=== PATIENT | female | born 1950 | race Caucasian/White ===

== ENCOUNTER 2023-06-26 13:36 | Outpatient (RCR) | payer MEDICARE, SELFPAY ==
--- NOTE | 2023-06-26 14:58 | PTOPEVAL1 ---
Assessment and note entered by Westley Armstrong Evaluation Information Assessment Status Evaluation Diagnosis left shoulder pain Onset 06/20/23 Subjective Information Pt. reports that her left shoulder pain has come and gone for the past year. She notices pain most with attempting to reach behind her back or reaching overhead. She reports she has difficulty with getting objects out of the kitchen cabinets. She states that she cannot hold very much weight due to pain. She states that pain will disrupt her sleep, espeically if she lays on the left shoulder. She states that she is right hand dominant. She reports that her goal is to improve her left shoulder movement and reduce her pain. Reported Pain Level Pain Score 4: Self Report Assessment PT Clinical Summary Pt. is a 73 year old female who enters the clinic with left shoulder pain due to rotator cuff syndrome. She presents with left proximal u.e. weakness, impaired postural awarness, impaired left shoulder ROM and pain. Continued PT is indicated in order to improve these areas to allow for improved comfort with all IADL's. Plan of Care Interventions Electrical Stimulation,Hot Pack/Cold Pack,Manual Therapy,Neuro Re-education,Patient/Caregiver Educati,Therapeutic Activities,Therapeutic Exercise PT Services Indicated Yes Treatment Frequency and 2x/week x 10 visits Duration These treatments will address the objective and functional deficits as defined above. The patient will be advanced safely and appropriately in order for the patient to progress towards his/her prior level of function. Additional exercises will be introduced and as well as a comprehensive home exercise program upon discharge, if needed, ?to ensure carryover of functional gains achieved in the clinic. This treatment plan has been reviewed and agreement upon by the patient.
--- NOTE | 2023-06-26 14:58 | OPREHPOC ---
Outpatient Therapy Plan of Care This is a Multidisciplinary Plan of Care that may contain components documented by all disciplines (PT, OT, and ST.) PT Problem 1 PT Problem #1 Knowledge Deficit PT Goal 1 Goal Pt. will be independent with a HEP addressing mobility amish at the left shoulder. Target Visit 2 PT Problem 2 PT Problem #2 Pain PT Goal 1 Goal Pt. will report pain levels at 2/10 at worst with all overhead activities. Target Visit 10 PT Problem 3 PT Problem #3 Impaired Range of Motion PT Goal 1 Goal -Pt. will reach to 150 degrees left shoulder flexion active ROM in sitting -Pt. will demonstrate symmetry with combined shoulder IR and extension on both right and left. Target Visit 10 PT Problem 4 PT Problem #4 Impaired Strength PT Goal 1 Goal Pt. will demonstrate 4+/5 proximal left u.e. strength. Target Visit 10
--- NOTE | 2023-08-03 14:05 | OPREHPOC ---
Outpatient Therapy Plan of Care This is a Multidisciplinary Plan of Care that may contain components documented by all disciplines (PT, OT, and ST.) PT Problem 1 PT Problem #1 Knowledge Deficit PT Goal 1 Goal Pt. will be independent with a HEP addressing mobility islam at the left shoulder. Target Visit 2 Progress Met PT Problem 2 PT Problem #2 Pain PT Goal 1 Goal Pt. will report pain levels at 2/10 at worst with all overhead activities. Target Visit 10 Progress Met PT Problem 3 PT Problem #3 Impaired Range of Motion PT Goal 1 Goal -Pt. will reach to 150 degrees left shoulder flexion active ROM in sitting -adequate progress -Pt. will demonstrate symmetry with combined shoulder IR and extension on both right and left. -met Target Visit 10 Progress Partially Met PT Problem 4 PT Problem #4 Impaired Strength PT Goal 1 Goal Pt. will demonstrate 4+/5 proximal left u.e. strength. Target Visit 10 Progress Met
--- NOTE | 2023-08-03 14:05 | PTOPDC ---
Assessment and note entered by Opal Farrar, PT Evaluation Information Assessment Status Discharge Diagnosis Left shoulder pain Onset 06/20/23 Subjective Information Abby Day reports her left shoulder is doing much better. She is noting no pain with her daily activities and is able to put dishes away in overhead cabinets, bathe/groom the back of her head, reach behind her back to don/doff a bra, and carry groceries and laundry baskets without pain. The only time she notes pain in the left shoulder is when she accidentally rolls onto her left side while sleeping. Reported Pain Level Pain Score 0: Self Report Pain Score 2: Self Report Assessment PT Clinical Summary Abby aDy has completed 10 skilled PT visits for left shoulder pain. She is reporting no pain with her daily activities and is able to put dishes away in overhead cabinets, bathe/groom the back of her head, reach behind her back to don/ doff a bra, and carry groceries and laundry baskets without pain. She occasionally has left shoulder pain when she lays on the left side. She objectively demonstrates improved left shoulder AROM to functional ranges, improved left shoulder strength, and less positive special tests for impingement and biceps tendonitis. She does still show a positive left Speed's test indicating some biceps tendon irritation is still present. She is independent in a home exercise program and has met all goals for PT so she will be discharged. Plan of Care PT Services Indicated No
== END 2023-08-03 18:14 | disposition home or self-care (01) ==
LOC: CHSPT 13:36
PROVIDERS: Visit Provider Family Medicine
DX: M25.512 Pain in left shoulder (principal)
CPT/HCPCS: 97014; 97110; 97150; 97161; G0283

== ENCOUNTER 2024-06-28 12:32 | Emergency (ER) | payer MEDICARE, SELFPAY ==
--- NOTE | ~2024-06-28 | XR_ITS ---
EXAMINATION: XR chest 2V DATE: 06/28/2024 12:53 INDICATION: Cough and chest congestion. Pneumonia. TECHNIQUE: Frontal and lateral views of the chest were obtained. COMPARISON: None. FINDINGS: There is no pneumonia, pleural effusion, or pneumothorax. The heart size is normal. IMPRESSION: 1. No acute cardiopulmonary disease. Reviewed, dictated and finalized at location A. [facility]
--- NOTE | 2024-06-28 12:33 | ED_ITS ---
HPI - URI/Sore Throat General Chief Complaint: Upper Respiratory Infection Stated Complaint: Congestion Time Seen by Provider: 06/28/24 12:33 Source: patient Mode of arrival: ambulatory Limitations: no limitations History of Present Illness HPI Narrative: Abby is a 74-year-old female patient presenting to the clinic today with complaints of cough, sore throat, runny nose, chest congestion, and body aches with chills. She reports symptoms have been going on for approximately for 5 days. No known fever. Denies any chest pain or shortness of breath but has had pneumonia exposure. MD elicited complaint: sore throat and nasal congestion Related Data Home Medications Medication Instructions Recorded Confirmed [id number] tablet 1 tablet PO DAILY 06/28/24 06/28/24 metoprolol tartrate 25 mg tablet 25 mg PO DAILY 06/28/24 06/28/24 potassium chloride 10 mEq 10 meq PO DAILY 06/28/24 06/28/24 capsule,extended release Allergies Allergy/AdvReac Type Severity Reaction Status Date / Time Penicillins Allergy Rash Verified 06/28/24 12:43 Review of Systems Review of Systems: Pertinent positives per HPI. Patient denies any fever, rash, headache, visual changes, dizziness, shortness of breath, chest pain, palpitations, nausea, vomiting, diarrhea, constipation, abdominal pain, or any urinary issues. PMFSH Comments At the time of my signature, I reviewed and agree with the nursing past medical, surgical, social, and family history. There is no relevant family history pertinent to the patient complaint. Exam Narrative: General: Well-developed, well nourished, in no apparent distress Head: Normocephalic, atraumatic Eyes: Pupils equally round and reactive to light bilaterally, EOM intact, sclera and conjunctive clear, no discharge, lids normal Ears: TMs intact and congested, ear canals clear, no drainage, grossly hearing normal. Nose: Nares patent, clear nasal discharge, no inflammation, no sinus tenderness. Mouth: Oral pharynx red without lesions or masses, good dentition, MMM. Postn jeny drip Neck: Supple, trachea midline, no enlargement of anterior or posterior cervical nodes, no thyroid masses or goiter palpable. Cardio: Regular rate and rhythm, s1 and s2 normal, no murmur appreciated. Resp: Diminished in the bases otherwise clear, no rhonchi, rales, wheezing or rubs Course Course Emergency Course: Portions of this record may have been created with voice recognition software. Level of Care: Express Care Visit Vital Signs Vital signs: Vital Signs Temperature 36.5 C 06/28/24 12:48 Pulse Rate 63 06/28/24 12:48 Respiratory Rate 16 06/28/24 12:48 Blood Pressure 146/85 H 06/28/24 12:48 Pulse Oximetry 98 06/28/24 12:48 Temperature 36.5 C 06/28/24 12:48 Pulse Rate 63 06/28/24 12:48 Respiratory Rate 16 06/28/24 12:48 Blood Pressure 146/85 H 06/28/24 12:48 Pulse Oximetry 98 06/28/24 12:48 Vital signs reviewed MDM - URI/Sore Throat MDM Narrative Medical decision making narrative: At the time of visit patient is resting comfortably on the exam table. Patient appears to be nontoxic. Labs: COVID, influenza, and strep test were all performed. All test were negative. We will send strep for culture Diagnostics: Chest x-ray was performed and is negative for any acute cardiopulmonary process. Plan: I suspect patient has URI with cough and congestion. Prescription for albuterol inhaler and prednisone was sent to the pharmacy. Supportive measures were discussed with the patient and they voiced understanding discharge instructions and agrees to treatment plan. Return precautions reviewed Differential Diagnosis Differential diagnosis: Likely upper respiratory infection, otitis media, sinusitis, viral infection, bronchitis, influenza, pharyngitis and other (COVID) Lab Data Labs: Lab Results 06/28/24 06/28/24 Range/Units 12:56 13:06 POC Influenza A Ag Negative (Negative) POC Influenza B Ag Negative (Negative) POC SARS CoV-2 Ag Negative (Negative) POC Grp A Strep Screen Negative (Negative) Imaging Data Radiologist's impression: ITS Impressions Chest X-Ray 06/28/24 13:06 IMPRESSION: 1. No acute cardiopulmonary disease. Discharge Plan Discharge Clinical Impression: Upper respiratory infection with cough and congestion Pharyngitis Qualifiers: Pharyngitis/tonsillitis etiology: unspecified etiology Qualified Code(s): J02.9 - Acute pharyngitis, unspecified Patient Disposition: Home, Self-Care Condition: Stable Instructions: Antibiotic Form, Pharyngitis (ED), Upper Respiratory Infection (ED) Additional Instructions: COVID, influenza, and strep test were all negative in the clinic today. We will send strep for culture if this comes back positive we will contact you in place you on antibiotics at that time Chest x-rays negative for any acute cardiopulmonary process Take medications as prescribed-prednisone and albuterol inhaler Increase fluids and stay well hydrated Tylenol/motrin for pain/fever Flonase and OTC antihistamines as directed Vicks vapor rub to open sinuses Sinus rinses for congestion Cepacol spray, cough drops, throat lozenges, warm tea with honey/lemon, gargle salt water to soothe throat BRAT diet for diarrhea Clear liquids x 24 hours then advance as tolerated for nausea/vomiting Go to the ED if you develop a worsening in your condition- high fever not controlled by Tylenol or Motrin, dehydration, weakness, lethargy, shortness of breath, or chest pain. Follow up with your PCP in 3-5 days if symptoms persist. Prescriptions: New albuterol sulfate 90 mcg/actuation HFA aerosol inhaler 2 puff inhalation Q4-6H PRN (Reason: shortness of breath or wheezing) 30 Days Qty: 8.5 0RF prednisone 20 mg tablet 40 mg PO DAILY 5 Days Qty: 10 0RF No Action potassium chloride 10 mEq capsule, extended release 10 meq PO DAILY metoprolol tartrate 25 mg tablet 25 mg PO DAILY Coricidin Tablet 1 tablet PO DAILY Follow-up/Referrals: UNKNOWN,DOCTOR [Primary Care Provider] - Time of Disposition: 13:11 Quality NIHSS Nursing Documentation ED NIHSS nursing documentation: reviewed/agree
[2024-06-28 12:48] VITALS: BP 146/85; PULSE 63; RESP 16; TEMP 36.5; O2SAT 98
[2024-06-28 12:57] LABS: EDSTREPNEGPOS1 Negative (Negative)
[2024-06-28 13:08] LABS: EDCOVIDSCREEN Negative (Negative); EDINFLUASCREEN Negative (Negative); EDINFLUBSCREEN Negative (Negative)
== END 2024-06-28 13:17 | disposition home or self-care (01) ==
PROVIDERS: Emergency Provider Nurse Practitioner Family
DX: J06.9 Acute upper respiratory infection, unspecified (principal); J02.9 Acute pharyngitis, unspecified; Z20.822 Contact with and (suspected) exposure to COVID-19; I10 Essential (primary) hypertension
CPT/HCPCS: 71046; 87081; 87426; 87804; 87880; 99213; G0463

== ENCOUNTER 2024-06-30 09:05 | Emergency (ER) | payer MEDICARE, SELFPAY ==
[2024-06-30 09:17] VITALS: PULSE 77; RESP 16; TEMP 36.3; O2SAT 97
[2024-06-30 09:23] VITALS: PULSE 77; RESP 16; TEMP 36.3; O2SAT 97
--- NOTE | 2024-06-30 09:35 | ED.EAR ---
HPI - Ear Problem General Chief complaint: Ear Stated complaint: Eye/Ear Pain Time Seen by Provider: 06/30/24 09:36 Source: patient Mode of arrival: ambulatory Limitations: no limitations History of Present Illness HPI Narrative: 76-year-old female history of hypertension presented for complaint of bilateral eye redness, itching and drainage for 2 days. Also reports bilateral ear pain and pressure with decreased hearing over the past 4 days. Patient states she was seen in the clinic 2 days ago and prescribed a steroid and an inhaler for symptoms of chest congestion and viral URI, and states the ear pain has progressed. Denies shortness of breath, wheezing, nausea, vomiting, diarrhea, fevers or chills MD Complaint: ear pain Related Data Home Medications Medication Instructions Recorded Confirmed [id number]-[id number] tablet 1 tablet PO DAILY 06/28/24 06/30/24 metoprolol tartrate 25 mg tablet 25 mg PO DAILY 06/28/24 06/30/24 potassium chloride 10 mEq 10 meq PO DAILY 06/28/24 06/30/24 capsule,extended release chlorthalidone 25 mg tablet 25 mg PO DIRECTED 06/30/24 06/30/24 Allergies Allergy/AdvReac Type Severity Reaction Status Date / Time Penicillins Allergy Rash Verified 06/30/24 09:17 Review of Systems Review of Systems: CONSTITUTIONAL: Denies malaise, chills, or fever. EYES: Denies visual changes, reports redness, itching, discharge. ENT: Denies sinus pain, and sore throat. Reports ear pain rhinorrhea, congestion CARDIOVASCULAR: Denies chest pain, palpitations, or edema. RESPIRATORY: Denies cough or dyspnea. GASTROINTESTINAL: Denies abdominal pain, nausea, vomiting, diarrhea SKIN: Denies rash or itching. MUSCULOSKELETAL: Denies myalgia. NEUROLOGIC: Denies headache. All systems reviewed & are unremarkable except as noted in HPI and below PMFSH Past Medical History Medical History Hypertension Comments At time of signature, agree with nursing past medical, surgical, social and family history. There is no relevant family history pertinent to the presenting complaint Exam Narrative: GENERAL: Well-appearing, and in no acute distress. HEAD: Normocephalic EYES: Lateral conjunctival injection, small amount of purulent drainage, mild lower lid swelling. PERRLA, EOMI. No foreign body with lid eversion ENT: Nares clear. Mucous membranes moist. Bilateral TM erythematous, bulging and intact with purulent effusion; canal not erythematous, no drainage; no tragal tenderness. Oropharynx not erythematous without lesions. NECK: Supple. No lymphadenopathy CHEST: Clear to auscultation, breath sounds equal. No wheezing, rhonchi, rales, or stridor. No respiratory distress, speaks in full sentences. HEART: Regular rate and rhythm. No murmur heard. SKIN: Warm, dry, no rash. NEURO: Alert and oriented x3. PSYCH: Normal mood and affect Course Course Emergency Course: Patient is aware of diagnosis, understands and agrees to treatment plan. Anticipatory guidance given. Patient agrees to follow-up as directed and is aware of reasons to seek care at the emergency department. Portions of this record may have been created with voice recognition software Level of Care: Express Care Visit Vital Signs Vital signs: Vital Signs Temperature 97.3 F L 06/30/24 09:17 Pulse Rate 77 06/30/24 09:17 Respiratory Rate 16 06/30/24 09:17 Pulse Oximetry 97 06/30/24 09:17 Temperature 97.3 F L 06/30/24 09:23 Pulse Rate 77 06/30/24 09:23 Respiratory Rate 16 06/30/24 09:23 Blood Pressure 174/65 H 06/30/24 09:44 Pulse Oximetry 97 06/30/24 09:23 Reviewed Medical Decision Making MDM Narrative Medical decision making narrative: Discussed physical exam findings consistent with bilateral conjunctivitis and bilateral AOM. Reviewed prescriptions. Advised supportive measures and signs/symptoms to go to the ER. Patient is appropriate for outpatient treatment and follow-up. Differential Diagnosis Differential Diagnosis: Coronavirus, strep pharyngitis, allergic rhinitis, upper respiratory tract infection, sinusitis, rhinosinusitis, nasopharyngitis, viral pharyngitis, otitis media, otitis externa, eustachian tube dysfunction, foreign body, cerumen impaction. Vital Signs Vital Signs: Vital Signs Temperature 97.3 F L 06/30/24 09:17 Pulse Rate 77 06/30/24 09:17 Respiratory Rate 16 06/30/24 09:17 Pulse Oximetry 97 06/30/24 09:17 Temperature 97.3 F L 12/08/24 09:23 Pulse Rate 77 06/30/24 09:23 Respiratory Rate 16 06/30/24 09:23 Blood Pressure 174/65 H 06/30/24 09:44 Pulse Oximetry 97 06/30/24 09:23 Discharge Plan Discharge Clinical Impression: Otitis media, Conjunctivitis Patient Disposition: Home, Self-Care Condition: Stable Instructions: Antibiotic Form, Ear Infection (ED), Conjunctivitis (ED) Additional Instructions: Eyes: Avoid touching or rubbing your eye. Use over the counter lubricating eye drops as needed for irritation Use a warm or cool washcloth on your eye for comfort Use eyedrops as directed - you are contagious for 24 hours after starting the antibiotic Practice good handwashing and hygiene to prevent spread of infection Use new makeup, lashes etc. You may take Tylenol or ibuprofen for pain Follow-up with PCP or dental technology advisor if condition is not improving in 2-3days. Go to the emergency room if you have severe pain or pressure behind your eye, difficulty seeing, or other severe symptoms Ears: Take antibiotics as directed. Recommend antihistamine such as Benadryl, Zyrtec or Chaya for sinus congestion Flonase nasal spray, 1 spray in each nostril once daily until symptoms improve Symptomatic treatment includes: rest, fluids, and increase humidity of the air at home. Tylenol 1000mg every 8 hours as needed to reduce fever, pain Please schedule a follow-up visit with your personal physician for further evaluation and treatment within 3-5days. If your symptoms persist, change or worsen significantly, go to the emergency department for further evaluation. Prescriptions: New ofloxacin 0.3 % drops See Rx Instructions .ROUTE .COMPLEX Qty: 10 0RF Rx Instructions: put 2 drops into affected eye(s) every 2 hours x 2 days, then 2 drops 4 times/day days 3-7 cefdinir 300 mg capsule 300 mg PO Q12H Qty: 14 0RF No Action chlorthalidone 25 mg tablet 25 mg PO DIRECTED potassium chloride 10 mEq capsule, extended release 10 meq PO DAILY metoprolol tartrate 25 mg tablet 25 mg PO DAILY Coricidin Tablet 1 tablet PO DAILY albuterol sulfate 90 mcg/actuation HFA aerosol inhaler 2 puff inhalation Q4-6H PRN (Reason: shortness of breath or wheezing) 30 Days Qty: 8.5 0RF Follow-up/Referrals: Edgar,Ember Hunt MD [Primary Care Provider] -
[2024-06-30 09:44] VITALS: BP 174/65
== END 2024-06-30 09:46 | disposition home or self-care (01) ==
PROVIDERS: Emergency Provider Nurse Practitioner Family; PCP Family Medicine
DX: H66.93 Otitis media, unspecified, bilateral (principal); H10.9 Unspecified conjunctivitis; I10 Essential (primary) hypertension
CPT/HCPCS: 99213; G0463

== ENCOUNTER 2024-07-11 11:06 | Emergency (ER) | payer MEDICARE, SELFPAY ==
[2024-07-11 11:40] VITALS: BP 126/55; PULSE 60; RESP 16; TEMP 36.2; O2SAT 99
--- NOTE | 2024-07-11 11:59 | ED.EAR ---
HPI - Ear Problem General Chief complaint: Ear Stated complaint: EARS CLOGGED Time Seen by Provider: 07/11/24 11:50 Source: patient Mode of arrival: ambulatory Limitations: no limitations History of Present Illness HPI Narrative: Abby is a 74-year-old female patient presenting to the clinic today with complaints of bilateral ears clogged. She just got over having a URI and was treated with antibiotics and steroids. States that her ears are still feeling clogged up and she cannot hear very well. Denies any other URI symptoms at this time. Related Data Home Medications ?Medication ?Instructions ?Recorded ?Confirmed ?Last Taken ?Type [id number]-GPC-wahxsgsubguch tablet 1 tablet PO DAILY 06/28/24 07/11/24 Unknown History metoprolol tartrate 25 mg tablet 25 mg PO DAILY 06/28/24 07/11/24 Unknown History potassium chloride 10 mEq 10 meq PO DAILY 06/28/24 07/11/24 Unknown History capsule,extended release chlorthalidone 25 mg tablet 25 mg PO DIRECTED 06/30/24 07/11/24 Unknown History Allergies Allergy/AdvReac Type Severity Reaction Status Date / Time Penicillins Allergy Rash Verified 07/11/24 11:38 Review of Systems Review of Systems: Pertinent positives per HPI. Patient denies any fever, chills, rash, headache, visual changes, dizziness, cough, runny nose, sore throat, shortness of breath, chest pain, palpitations, nausea, vomiting, diarrhea, constipation, abdominal pain, or any urinary issues. PMFSH Past Medical History Medical History Hypertension Comments At the time of my signature, I reviewed and agree with the nursing past medical, surgical, social, and family history. There is no relevant family history pertinent to the patient complaint. Exam Narrative: General: Well-developed, well nourished, in no apparent distress Head: Normocephalic, atraumatic Eyes: Pupils equally round and reactive to light bilaterally, EOM intact, sclera and conjunctive clear, no discharge, lids normal Ears: TMs intact and congested with fluid noted behind the TMs, ear canals clear, no drainage, grossly hearing normal. Nose: Nares patent, clear nasal discharge, no inflammation, no sinus tenderness. Mouth: Oropharynx without lesions or masses, good dentition, MMM. Neck: Supple, trachea midline, no enlargement of anterior or posterior cervical nodes, no thyroid masses or goiter palpable. Cardio: Regular rate and rhythm, s1 and s2 normal, no murmur appreciated. Resp: Clear to auscultation bilaterally anteriorly and posteriorly, no rhonchi, rales, wheezing or rubs Course Course Emergency Course: Portions of this record may have been created with voice recognition software. Level of Care: Express Care Visit Vital Signs Vital signs: Vital Signs Temperature 36.2 C L 07/11/24 11:40 Pulse Rate 60 07/11/24 11:40 Respiratory Rate 16 07/11/24 11:40 Blood Pressure 126/55 L 07/11/24 11:40 Pulse Oximetry 99 07/11/24 11:40 Temperature 36.2 C L 07/11/24 11:40 Pulse Rate 60 07/11/24 11:40 Respiratory Rate 16 07/11/24 11:40 Blood Pressure 126/55 L 07/11/24 11:40 Pulse Oximetry 99 07/11/24 11:40 Vital signs reviewed Medical Decision Making MDM Narrative Medical decision making narrative: At the time of visit patient is resting comfortably on the exam table. Patient appears to be nontoxic. Plan: I suspect patient has serous otitis. Prescription for prednisone was given to the patient for follow-up with ENT if symptoms do not improve. Supportive measures were discussed with the patient and they voiced understanding discharge instructions and agrees to treatment plan. Return precautions reviewed Differential Diagnosis Differential Diagnosis: Serous otitis, otitis media, eustachian tube dysfunction, otitis externa, URI Vital Signs Vital Signs: Vital Signs Temperature 36.2 C L 07/11/24 11:40 Pulse Rate 60 07/11/24 11:40 Respiratory Rate 16 07/11/24 11:40 Blood Pressure 126/55 L 07/11/24 11:40 Pulse Oximetry 99 07/11/24 11:40 Temperature 36.2 C L 07/11/24 11:40 Pulse Rate 60 07/11/24 11:40 Respiratory Rate 16 07/11/24 11:40 Blood Pressure 126/55 L 07/11/24 11:40 Pulse Oximetry 99 07/11/24 11:40 Discharge Plan Discharge Clinical Impression: Acute serous otitis media Qualifiers: Laterality: bilateral Recurrence: non-recurrent Qualified Code(s): H65.03 - Acute serous otitis media, bilateral Patient Disposition: Home, Self-Care Condition: Stable Instructions: Antibiotic Form, Fluid In The Ear (Serous Otitis Media) (ED) Additional Instructions: Take any prescribed medications only as directed-prednisone Tylenol/motrin as needed for pain May use heating pad to alleviate pain If you get recurrent ear infections it may be warranted to follow up with ENT. Follow up with your PCP in 3-5 days if symptoms persist. Patient Language: Croatian Prescriptions: New prednisone 10 mg tablet 10 mg PO DAILY Qty: 30 0RF Rx Instructions: 60mg po daily on day 1, 40mg po daily on days 2-4, 30mg po daily on days 5-6, 20mg po daily on days 7-8, 10mg po daily on days 9-10 No Action chlorthalidone 25 mg tablet 25 mg PO DIRECTED potassium chloride 10 mEq capsule, extended release 10 meq PO DAILY metoprolol tartrate 25 mg tablet 25 mg PO DAILY Coricidin Tablet 1 tablet PO DAILY albuterol sulfate 90 mcg/actuation HFA aerosol inhaler 2 puff inhalation Q4-6H PRN (Reason: shortness of breath or wheezing) 30 Days Qty: 8.5 0RF Follow-up/Referrals: Amos Skinner MD [Physician] - Yomk,Ember Hunt MD [Primary Care Provider] - Time of Disposition: 12:00 Quality NIHSS Nursing Documentation ED NIHSS nursing documentation: reviewed/agree
== END 2024-07-11 12:11 | disposition home or self-care (01) ==
PROVIDERS: Emergency Provider Nurse Practitioner Family; PCP Family Medicine
DX: H65.03 Acute serous otitis media, bilateral (principal); I10 Essential (primary) hypertension
CPT/HCPCS: 99213; G0463

== ENCOUNTER 2024-12-05 11:49 | Outpatient (CLI) | payer MEDICARE, SELFPAY ==
--- OUTSIDE RECORDS SUMMARY | 2024-12-05 11:54 | XMS_ITS | Clinical Summary ---
Author Organization [facility] Address [address] [place] [phone] Care Team Providers Care Director Software Development Name Role Phone Ember Galvez MD Primary Care Provider + Allergies Active Allergy Reactions Criticality Noted Date Comments Penicillins Hives Medium 09/21/2023 Medications potassium chloride ER 10 mEq CR capsule TAKE 1 CAPSULE ORALLY TWICE A DAY DO NOT CRUSH OR CHEW. WITH A FULL GLASS OF WATER 4 Active zolpidem (AMBIEN) 5 mg tablet Take 1 tablet (5 mg total) by mouth nightly as needed Active chlorthalidone (HYGROTON) 25 mg tablet Take 1 tablet (25 mg total) by mouth daily 4 Active metoprolol tartrate (LOPRESSOR) 25 mg immediate release tablet Take 1 tablet (25 mg total) by mouth 2 (two) times a day Active clotrimazole 1 % cream APPLY TO THE AFFECTED AND SURROUNDING AREAS OF SKIN BY TOPICAL ROUTE 2 TIMES PER DAY IN THE MORNING AND EVENING prn Active cholecalciferol (VITAMIN D-3) 2000 unit tablet Active krill oil 500 mg capsule Take by mouth Activ e magnesium gluconate 200 mg tabletIndicatio ns:hypomagnesem ia 1 tablet (200 mg total) Active Active Problems No known active problems Social History Tobacco Use Types Packs/Day Years Used Date Smoking Tobacco: Former Cigarettes Smokeless Tobacco: Never Tobacco Cessation:Counseling Given: Not Answered Personal Safety Answer Date Recorded Getting School Help Needed Not on file 07/03 Comments Unknown Sex and Gender Information Value Date Recorded Sex Assigned at Not on file Legal Sex Female 3:06 PM [employer] Gender Identity Not on file Sexual Orientation Not on file Obstetrics History Last Filed Vital Signs Vital Sign Reading Time Taken Comments Blood Pressure 151/72 09/21/2023 11:12 AM [employer] Pulse 58 09/21/2023 11:12 AM [employer] Temperature 36.3 C (97.3 F) 09/21/2023 11:12 AM [employer] Respiratory Rate 18 09/21/2023 11:12 AM [employer] Oxygen Saturation 96% 09/21/2023 11:12 AM [employer] Inhaled Oxygen Concentration - - Weight 82.6 kg (182 lb) 09/21/2023 11:12 AM [employer] HEL[employer] Height 160.5 cm (5' 3.19 ) 09/21/2023 11:[address] Body Mass Index 32.05 09/21/2023 11:12 AM [employer] HEL[employer] Plan of Treatment Health Maintenance Due Date Last Done Comments Breast Cancer Screening-Mammogram 1950 Colon Cancer Screening-Colonoscopy 1950 Depression Screening 1950 Fall Risk Assessment 1950 Hepatitis C Screening 1950 Osteoporosis Screening-Bone Density Scan 1950 DTaP/Tdap/Td Vaccine (1 - Tdap) 1961 Hepatitis B Screening 1968 Pneumococcal vaccine 65+ (1 of 1 - PCV) 2000 Zoster Vaccine (1 of 2) 2000 Well Visit 65+ 2015 Influenza Vaccine (#1) 2024 04/27/2023 Insurance [facility] Care Teams Director Software Development Relationship Specialty Start Date End Date Ember Galvez MD [address] [place] [address] [place] [id number] PCP - General Family Medicine 07/03/23
--- OUTSIDE RECORDS SUMMARY | 2024-12-05 11:54 | XMS_ITS | Data Portability ---
Author Organization [place] [facility] [employer], Main Office Address [address] [place] [address] Assessment Encounter Date Assessment Date Assessment LastModified by Organization Details LastModified Time 04/27/2023 04/27/2023 ? rls, check labs [email or web address] Not available 04/27/2023 15:56:25 Plan of Treatment Reminders Order Date Submit Date Provider Last Modified By Organization Details Last Modified Time Details Appointments Any 15 2024 01:00P Ashley Ward NP Not available Not available Not available Lab HbA1c (hemoglob in A1c), blood 2024 025 [facility], [address] [place] [address], [address], 10/06/2024 08:11:58 magnesium , serum or plasma 2024 025 [facility], [address] [place] [address], [address], 10/06/2024 08:12:00 cobalamin and folate panel, serum 2024 025 [facility], [address] [place] [address], [place], [address], 10/06/2024 08:11:56 CK (creatine kinase), total, serum 2024 025 [facility], [address] [place] [address], [place], [address], 10/06/2024 08:11:57 lipid panel, serum 2024 025 [facility], [address] [place] [address] 2, [place], [address], 10/06/2024 08:11:55 hepatic function panel, serum 2024 025 [facility], [address] [place] [address], [facility] 2, [place], [address], 10/06/2024 08:11:54 CMP, serum or plasma 2024 025 [facility], [address] [place] [address], [facility] 2, [place], [address], 10/06/2024 08:11:53 vitamin D, 25-hydrox y, total, serum 2024 025 [facility], [address] [place] [address], [facility] 2, [place], [address], 10/06/2024 08:11:59 CBC w/ auto diff 2024 025 [facility], [address] [place] [address] 2, [place], [address], 10/06/2024 08:11:51 TSH + free T4, serum 2024 025 [facility], [address] [place] [address], [facility] 2, [place], [address], 10/06/2024 08:11:50 T3, free, serum or plasma 2024 025 [facility], [address] [place] [address], [place], [address], 10/06/2024 08:12:01 ferritin, serum or plasma 2022 023 [facility] Not available 06/28/2023 08:27:53 iron + total iron-bind ing capacity (TIBC), serum 2022 023 [facility] Not available 06/28/2023 08:27:52 CBC w/ auto diff 2022 023 [facility] Not available 06/28/2023 08:27:50 hepatic function panel, serum 2022 023 [facility] Not available 06/28/2023 08:27:51 glycohemo globin, total, blood 2022 023 [email or web address] 77 Not available 05/08/2023 08:02:59 BMP, serum or plasma 2022 023 [email or web address] 77 Not available 05/08/2023 08:02:59 magnesium , serum or plasma 2022 023 [email or web address] 77 Not available 05/08/2023 08:03:00 iron + total iron-bind ing capacity (TIBC), serum 2022 023 [email or web address] 77 Not available 05/08/2023 08:03:00 ferritin, serum or plasma 2022 023 [email or web address] 77 Not available 05/08/2023 08:03:00 lipid panel, serum 2022 023 [email or web address] 77 Not available 05/08/2023 08:03:00 hepatic function panel, serum 2022 023 77 Not available 05/08/2023 08:03:01 vitamin D, 25-hydrox y, total, serum 2022 023 [email or web address] 77 Not available 05/08/2023 08:03:00 CBC w/ auto diff 2022 023 [email or web address] 77 Not available 05/08/2023 08:03:00 TSH, serum or plasma 2022 023 [email or web address] 77 Not available 05/08/2023 08:03:00 vitamin B12, serum 2022 023 [email or web address] 77 Not available 05/08/2023 08:03:00 Referral physical therapist referral - *Please call pt to schedule* 2022 023 [facility], [address] [place], [address], 06/26/2023 17:39:26 otolaryng ologist referral 2022 023 [email or web address] Elier Muñoz MD, [address], [place], [address], 08/09/2023 18:21:46 Procedures None recorded. Surgeries None recorded. Imaging MAMMO, screening , digital, bilateral - Please call patient to schedule. 2024 025 [facility] ([facility]), [address] [facility], [place], [address], 11/06/2024 16:38:12 Medication Orders metoprolo l tartrate 25 mg tablet 2024 025 [facility]acy #3259, [address] [place], [address], 10/02/2024 10:44:05 potassium chloride ER 10 mEq capsule,e xtended release 2024 025 [facility]acy #3259, [address] [place], [address], 10/02/2024 10:45:22 clotrimaz ole 1 % topical cream 2023 024 [facility]armacy #3259, [address] [place], [address], 09/25/2023 15:35:42 nystatin 100,000 unit/gram topical powder 2022 023 [email or web address]/Ph[facility]acy #3259, [address] [place], [address], 09/25/2023 15:28:36 metoprolo l tartrate 25 mg tablet 2022 023 [email or web address] [facility]/Pharmacy #3259, [address] [place], [address], 06/21/2023 21:15:56 Patient TargetsNo targets recorded. Patient InstructionsNo instructions recorded. Reason for Referral Director Of Medical Review Referral fo r Vertigo Referring Physician: Ember Galvez [facility], Encounter Date: 06/20/2023 Physical Therapist Referral for Pain of left shoulder joint *Please call pt to schedule* Referring Physician: Ember Galvez [facility], Encounter Date: 06/20/2023 Results Created Date Observation Date Name Description Value Unit Range Abnormal Flag Note LastModifiedBy Organization Detail LastModifiedTime 05/15/2005/16/2023 CBC WITH DIFFE RENTI AL/PL ATELE T WBC 4.9 x10e3 /uL 3.4-10 .8 Not Available [facility] ([facility]) [address] [place], [address], 05/16/2023 08:23:58 05/15/2005/16/2023 CBC WITH DIFFE RENTI AL/PL ATELE T RBC 4.80 x10e6 /uL 3.77-5 .28 Not Available [facility] ([facility]) [address] [place], [address], 05/16/2023 08:23:58 05/15/2005/16/2023 CBC WITH DIFFE RENTI AL/PL ATELE T hemoglobin 14.2 g/dL 11.1-1 5.9 Not Available [facility] ([facility]) [address] [place], [address], 05/16/2023 08:23:58 05/15/2005/16/2023 CBC WITH DIFFE RENTI AL/PL ATELE T hematocrit 41.2 % 34.0-4 6.6 Not Available [facility] ([facility]) [address] [place], [address], 05/16/2023 08:23:58 05/15/2005/16/2023 CBC WITH DIFFE RENTI AL/PL ATELE T MCV 86 fL 79-97 Not Available [facility] ([facility]) [address] [facility], [place], [address], 05/16/2023 08:23:58 05/15/2005/16/2023 CBC WITH DIFFE RENTI AL/PL ATELE T MCH 29.6 pg 26.6-3 3.0 Not Available [facility] ([facility]) [address] [facility], [place], [address], 05/16/2023 08:23:58 05/15/2005/16/2023 CBC WITH DIFFE RENTI AL/PL ATELE T MCHC 34.5 g/dL 31.5-3 5.7 Not Available [facility] ([facility]) [address] [facility], [place], [address], 05/16/2023 08:23:58 05/15/2005/16/2023 CBC WITH DIFFE RENTI AL/PL ATELE T RDW 12.4 % 11.7-1 5.4 Not Available [facility] ([facility]) [address] [facility], [place], [address], 05/16/2023 08:23:58 05/15/2005/16/2023 CBC WITH DIFFE RENTI AL/PL ATELE T platelets 219 x10e3 /uL 150-45 0 Not Available [facility] ([facility]) [address] [facility], [place], [address], 05/16/2023 08:23:58 05/15/2005/16/2023 CBC WITH DIFFE RENTI AL/PL ATELE T neutrophils 68 % not estab. Not Available [facility] ([facility]) [address] [place], [address], 05/16/2023 08:23:58 05/15/2005/16/2023 CBC WITH DIFFE RENTI AL/PL ATELE T lymphs 21 % not estab. Not Available [facility] ([facility]) [address] [facility], [place], [address], 05/16/2023 08:23:58 05/15/2005/16/2023 CBC WITH DIFFE RENTI AL/PL ATELE T monocytes 7 % not estab. Not Available [facility] ([facility]) [address] [place], [address], 05/16/2023 08:23:58 05/15/2005/16/2023 CBC WITH DIFFE RENTI AL/PL ATELE T eos 3 % not estab. Not Available [facility] ([facility]) [address] [facility], [place], [address], 05/16/2023 08:23:58 05/15/2005/16/2023 CBC WITH DIFFE RENTI AL/PL ATELE T basos 1 % not estab. Not Available [facility] ([facility]) [address] [facility], [place], [address], 05/16/2023 08:23:58 05/15/2005/16/2023 CBC WITH DIFFE RENTI AL/PL ATELE T immature cells ENDOSCOPY RN Not Available [facility] ([facility]) [address] [place], [address], 05/16/2023 08:23:58 05/15/2005/16/2023 CBC WITH DIFFE RENTI AL/PL ATELE T neutrophils (absolute) 3.3 x10e3 /uL 1.4-7. 0 Not Available [facility] ([facility]) [address] [place], [address], 05/16/2023 08:23:58 05/15/2005/16/2023 CBC WITH DIFFE RENTI AL/PL ATELE T lymphs (absolute) 1.0 x10e3 /uL 0.7-3. 1 Not Available [facility] ([facility]) [address] [place], [address], 05/16/2023 08:23:58 05/15/2005/16/2023 CBC WITH DIFFE RENTI AL/PL ATELE T monocytes(ab solute) 0.3 x10e3 /uL 0.1-0. 9 Not Available [facility] ([facility]) [address] [facility], [place], [address], 05/16/2023 08:23:58 05/15/2005/16/2023 CBC WITH DIFFE RENTI AL/PL ATELE T eos (absolute) 0.2 x10e3 /uL 0.0-0. 4 Not Available [facility] ([facility]) [address] [facility], [place], [address], 05/16/2023 08:23:58 05/15/2005/16/2023 CBC WITH DIFFE RENTI AL/PL ATELE T baso (absolute) 0.0 x10e3 /uL 0.0-0. 2 Not Available [facility] ([facility]) [address] [facility], [place], [address], 05/16/2023 08:23:58 05/15/2005/16/2023 CBC WITH DIFFE RENTI AL/PL ATELE T immature granulocytes 0 % not estab. Not Available [facility] ([facility]) [address] [facility] [place], [address], 05/16/2023 08:23:58 05/15/2005/16/2023 CBC WITH DIFFE RENTI AL/PL ATELE T immature grans (abs) 0.0 x10e3 /uL 0.0-0. 1 Not Available [facility] ([facility]) [address] [facility], [place], [address], 05/16/2023 08:23:58 05/15/20 23 05/16/2023 CBC WITH DIFFE RENTI AL/PL ATELE T NRBC ENDOSCOPY RN Not Available [facility] ([facility]) [address] [facility] [place], [address], 05/16/2023 08:23:58 05/15/2005/16/2023 CBC WITH DIFFE MECHELLE AL/SHERI Vargas hematology comments: ENDOSCOPY RN Not Available [facility] ([facility]) [address] [facility], [place], [address], 05/16/2023 08:23:58 05/15/2005/16/2023 BASIC METAB OLIC PANEL (8) glucose 145 mg/dL 70-99 above high normal Not Available [facility] ([facility]) [address] [facility] [place], [address], 05/16/2023 08:23:59 05/15/2005/16/2023 BASIC METAB OLIC PANEL (8) BUN 12 mg/dL 8-27 Not Available [facility] ([facility]) [address] [facility] [place], [address], 05/16/2023 08:23:59 05/15/2005/16/2023 BASIC METAB OLIC PANEL (8) creatinine 0.62 mg/dL 0.57-1 .00 Not Available [facility] ([facility]) [address] [facility] [place], [address], 05/16/2023 08:23:59 05/15/2005/16/2023 BASIC METAB OLIC PANEL (8) eGFR 94 mL/mi n/1.7 3 >59 Not Available [facility] ([facility]) [address] [facility] [place], [address], 05/16/2023 08:23:59 05/15/2005/16/2023 BASIC METAB OLIC PANEL (8) BUN/creatini ne ratio 19 12-28 Not Available [facility] ([facility]) [address] [facility] [place], [address], 05/16/2023 08:23:59 05/15/2005/16/2023 BASIC METAB OLIC PANEL (8) sodium 138 mmol/ L 134-14 4 Not Available [facility] ([facility]) [address] [place], [address], 05/16/2023 08:23:59 05/15/2005/16/2023 BASIC METAB OLIC PANEL (8) potassium 3.8 mmol/ L 3.5-5. 2 Not Available [facility] ([facility]) [address] [place], [address], 05/16/2023 08:23:59 05/15/2005/16/2023 BASIC METAB OLIC PANEL (8) chloride 97 mmol/ L 96-106 Not Available [facility] ([facility]) [address] [place], [address], 05/16/2023 08:23:59 05/15/2005/16/2023 BASIC METAB OLIC PANEL (8) carbon dioxide, total 27 mmol/ L 20-29 Not Available [facility] ([facility]) [address] [place], [address], 05/16/2023 08:23:59 05/15/2005/16/2023 BASIC METAB OLIC PANEL (8) calcium 9.2 mg/dL 8.7-10 .3 Not Available [facility] ([facility]) [address] [place], [address], 05/16/2023 08:23:59 05/15/2005/16/2023 LIPID PANEL cholesterol, total 231 mg/dL 100-19 9 above high normal Not Available [facility] ([facility]) [address] [place], [address], 05/16/2023 08:24:00 05/15/2005/16/2023 LIPID PANEL triglyceride s 270 mg/dL 0-149 above high normal Not Available [facility] ([facility]) [address] [place], [address], 05/16/2023 08:24:00 05/15/2005/16/2023 LIPID PANEL HDL cholesterol 40 mg/dL >39 Not Available [facility]) [address] [facility] [place], [address], 05/16/2023 08:24:00 05/15/2005/16/2023 LIPID PANEL VLDL cholesterol liliana 49 mg/dL 5-40 above high normal Not Available [facility] ([facility]) [address] [facility] [place], [address], 05/16/2023 08:24:00 05/15/2005/16/2023 LIPID PANEL LDL chol calc ([facility]) 142 mg/dL 0-99 above high normal Not Available [facility] ([facility]) [address] [place], [address], 05/16/2023 08:24:00 05/15/2005/16/2023 LIPID PANEL comment: ENDOSCOPY RN Not Available [facility] ([facility]) [address] [place], [address], 05/16/2023 08:24:00 05/15/2005/16/2023 HEPAT IC FUNCT ION PANEL (7) protein, total 7.1 g/dL 6.0-8. 5 Not Available [facility] ([facility]) [address] [place], [address], 05/16/2023 08:24:01 05/15/2005/16/2023 HEPAT IC FUNCT ION PANEL (7) albumin 4.3 g/dL 3.8-4. 8 Not Available [facility] ([facility]) [address] [place], [address], 05/16/2023 08:24:01 05/15/2005/16/2023 HEPAT IC FUNCT ION PANEL (7) bilirubin, total 0.7 mg/dL 0.0-1. 2 Not Available [facility] ([facility]) [address] [place], [address], 05/16/2023 08:24:01 05/15/2005/16/2023 HEPAT IC FUNCT ION PANEL (7) bilirubin, direct 0.19 mg/dL 0.00-0 .40 Not Available [facility] ([facility]) [address] [place], [address], 05/16/2023 08:24:01 05/15/2005/16/2023 HEPAT IC FUNCT ION PANEL (7) alkaline phosphatase 78 IU/L 44-121 Not Available [facility]) [address] [place], [address], 05/16/2023 08:24:01 05/15/2005/16/2023 HEPAT IC FUNCT ION PANEL (7) AST (SGOT) 32 IU/L 0-40 Not Available [facility] ([facility]) [address] [place], [address], 05/16/2023 08:24:01 05/15/2005/16/2023 HEPAT IC FUNCT ION PANEL (7) ALT (SGPT) 33 IU/L 0-32 above high normal Not Available [facility] ([facility]) [address] [place], [address], 05/16/2023 08:24:01 05/15/2005/16/2023 IRON AND TIBC iron bind.cap.(TI BC) 305 ug/dL 250-45 0 Not Available [facility] ([facility]) [address] [place], [address], 05/16/2023 08:24:02 05/15/2005/16/2023 IRON AND TIBC UIBC 166 ug/dL 118-36 9 Not Available [facility] ([facility]) [address] [place], [address], 05/16/2023 08:24:02 05/15/2005/16/2023 IRON AND TIBC iron 139 ug/dL 27-139 Not Available [facility] ([facility]) [address] [facility] [place], [address], 05/16/2023 08:24:02 05/15/2005/16/2023 IRON AND TIBC iron saturation 46 % 15-55 Not Available [facility]) [address] [facility] [place], [address], 05/16/2023 08:24:02 05/15/2005/16/2023 HEMOG LOBIN A1C hemoglobin A1C 6.2 % 4.8-5. 6 above high normal Predi abete s: 5.7 - 6.4 Diabe delma: >6.4 Glyce maxi contr ol for adult s with diabe delma: <7.0 Not Available Not Available 05/16/2023 08:24:03 05/15/2005/16/2023 TSH TSH 3.690 uIU/m L 0.450- 4.500 Not Available Not Available 05/16/2023 08:24:04 05/15/2005/16/2023 VITAM IN D, 25-HY DROXY vitamin D, 25-hydroxy 28.2 NG/mL 30.0-1 00.0 below low normal Vitam in D defic iency has been defin ed by the Insti tute of Medic ine and an Endoc rine Socie ty pract ice guide line as a level of serum 25-OH vitam in D less than 20 ng/mL (1,2) . The Endoc rine Socie ty went on to furth er defin e vitam in D insuf ficie ncy as a level betwe en 21 and 29 ng/mL (2). 1. IOM (Inst itute of Medic ine). 2010. Dieta ry refer ence intak es for calci um and D. Marah ngo [place]: The [facility] . 2. Cynthia brown MF, Neri hubbard [place], Bisch off-F errar i IZAGUIRRE, et al. Evalu ation , treat ment, and preve ntion of vitam in D defic iency : an Endoc rine Socie ty clini liliana pract ice guide line. JCEM. 2010; 96(7) :1911 -30. Not Available [facility] ([facility]) [address] [place], [address], 05/16/2023 08:24:04 05/15/2005/16/2023 VITAM IN B12 vitamin B12 508 pg/mL 232-12 45 Not Available [facility] ([facility]) [address] [place], [address], 05/16/2023 08:24:05 05/15/2005/16/2023 MAGNE SIUM magnesium 1.6 mg/dL 1.6-2. 3 Not Available [facility] ([facility]) [address] [place], [address], 05/16/2023 08:24:06 05/15/2005/16/2023 DON TIN ferritin 493 NG/mL 15-150 above high normal Not Available [facility] ([facility]) [address] [place], [address], 05/16/2023 08:24:07 05/15/2005/15/2023 JOSE SIM V LP DEFAU LT jose yanes LP default COMMEN T A hand- writt en panel /prof ile was recei perry from your offic e. In accor dance with the [facility] Jose uous Test Code Polic y dated January 2003, we have compl eted your order by using the close st teresita ntly or heidi addison recog nized AMA panel . We have krupa guevara Lipid Panel , Test Code #[address]. If this is not the testi ng you wishe d to recei ve on this speci men, pleas e conta ct the [facility] Clien t Inqui ry/Te chnic al Servi durga Depar tment to hui fy the test order . We appre ciate your busin ess. Not Available [facility] ([facility]) [address] [facility] [place], [address], 05/16/2023 08:24:08 05/15/20 23 05/15/2023 AMBIG ABBRE V HFP7 DEFAU LT ambig abbrev hfp7 default COMMEN T A hand- writt en panel /prof zoila was recei perry from your offic e. In accor dance with the [facility] Ambig uous Test Code Polic y dated January 2003, we have compl eted your order by using the close st curre ntly or forme rly recog nized AMA panel . We have assjanelle coled Hepat ic Funct ion Panel (7), Test Code #[address]. If this is not the testi ng you wishe d to recei ve on this speci men, pleas e conta ct the [facility] Clien t Inqui ry/Te chnic al Servi durga Depar tment to hui fy the test order . We appre ciate your busin ess. Not Available [facility] ([facility]) [address] [facility] [place], [address], 05/16/2023 08:24:09 06/27/20 23 06/28/2023 CBC WITH DIFFE RENTI AL/PL ATELE T WBC 4.8 x10e3 /uL 3.4-10 .8 Not Available [facility] ([facility]) [address] [facility] [place], [address], 06/28/2023 08:27:50 06/27/20 23 06/28/2023 CBC WITH DIFFE RENTI AL/PL ATELE T RBC 4.95 x10e6 /uL 3.77-5 .28 Not Available [facility] ([facility]) [address] [facility] [place], [address], 06/28/2023 08:27:50 06/27/20 23 06/28/2023 CBC WITH DIFFE RENTI AL/PL ATELE T hemoglobin 14.2 g/dL 11.1-1 5.9 Not Available [facility] ([facility]) [address] [facility] [place], [address], 06/28/2023 08:27:50 06/27/20 23 06/28/2023 CBC WITH DIFFE RENTI AL/PL ATELE T hematocrit 43.2 % 34.0-4 6.6 Not Available [facility] ([facility]) [address] [facility] [place], [address], 06/28/2023 08:27:50 06/27/2006/28/2023 CBC WITH DIFFE RENTI AL/PL ATELE T MCV 87 fL 79-97 Not Available [facility] ([facility]) [address] [facility] [place], [address], 06/28/2023 08:27:50 06/27/20 23 06/28/2023 CBC WITH DIFFE RENTI AL/PL ATELE T MCH 28.7 pg 26.6-3 3.0 Not Available [facility] ([facility]) [address] [facility] [place], [address], 06/28/2023 08:27:50 06/27/20 23 06/28/2023 CBC WITH DIFFE RENTI AL/PL ATELE T MCHC 32.9 g/dL 31.5-3 5.7 Not Available [facility] ([facility]) [address] [place], [address], 06/28/2023 08:27:50 06/27/20 23 06/28/2023 CBC WITH DIFFE RENTI AL/PL ATELE T RDW 12.8 % 11.7-1 5.4 Not Available [facility] ([facility]) [address] [place], [address], 06/28/2023 08:27:50 06/27/20 23 06/28/2023 CBC WITH DIFFE RENTI AL/PL ATELE T platelets 222 x10e3 /uL 150-45 0 Not Available [facility] ([facility]) [address] [facility] [place], [address], 06/28/2023 08:27:50 06/27/20 23 06/28/2023 CBC WITH DIFFE RENTI AL/PL ATELE T neutrophils 68 % not estab. Not Available [facility] ([facility]) [address] [facility] [place], [address], 06/28/2023 08:27:50 06/27/20 23 06/28/2023 CBC WITH DIFFE RENTI AL/PL ATELE T lymphs 20 % not estab. Not Available [facility] ([facility]) [address] [place], [address], 06/28/2023 08:27:50 06/27/20 23 06/28/2023 CBC WITH DIFFE RENTI AL/PL ATELE T monocytes 7 % not estab. Not Available [facility] ([facility]) [address] [facility] [place], [address], 06/28/2023 08:27:50 06/27/20 23 06/28/2023 CBC WITH DIFFE RENTI AL/PL ATELE T eos 4 % not estab. Not Available [facility] ([facility]) [address] [place], [address], 06/28/2023 08:27:50 06/27/20 23 06/28/2023 CBC WITH DIFFE RENTI AL/PL ATELE T basos 1 % not estab. Not Available [facility] ([facility]) [address] [place], [address], 06/28/2023 08:27:50 06/27/20 23 06/28/2023 CBC WITH DIFFE RENTI AL/PL ATELE T immature cells ENDOSCOPY RN Not Available [facility] ([facility]) [address] [place], [address], 06/28/2023 08:27:50 06/27/20 23 06/28/2023 CBC WITH DIFFE RENTI AL/PL ATELE T neutrophils (absolute) 3.2 x10e3 /uL 1.4-7. 0 Not Available [facility] ([facility]) [address] [facility] [place], [address], 06/28/2023 08:27:50 06/27/20 23 06/28/2023 CBC WITH DIFFE RENTI AL/PL ATELE T lymphs (absolute) 1.0 x10e3 /uL 0.7-3. 1 Not Available [facility] ([facility]) [address] [place], [address], 06/28/2023 08:27:50 06/27/20 23 06/28/2023 CBC WITH DIFFE RENTI AL/PL ATELE T monocytes(ab solute) 0.3 x10e3 /uL 0.1-0. 9 Not Available [facility] ([facility]) [address] [place], [address], 06/28/2023 08:27:50 06/27/20 23 06/28/2023 CBC WITH DIFFE RENTI AL/PL ATELE T eos (absolute) 0.2 x10e3 /uL 0.0-0. 4 Not Available [facility] ([facility]) [address] [facility], [place], [address], 06/28/2023 08:27:50 06/27/20 23 06/28/2023 CBC WITH DIFFE RENTI AL/PL ATELE T baso (absolute) 0.1 x10e3 /uL 0.0-0. 2 Not Available [facility] ([facility]) [address] [place], [address], 06/28/2023 08:27:50 06/27/20 23 06/28/2023 CBC WITH DIFFE RENTI AL/PL ATELE T immature granulocytes 0 % not estab. Not Available [facility] ([facility]) [address] [facility], [place], [address], 06/28/2023 08:27:50 06/27/20 23 06/28/2023 CBC WITH DIFFE RENTI AL/PL ATELE T immature grans (abs) 0.0 x10e3 /uL 0.0-0. 1 Not Available [facility] ([facility]) [address] [facility], [place], [address], 06/28/2023 08:27:50 06/27/20 23 06/28/2023 CBC WITH DIFFE RENTI AL/PL ATELE T NRBC ENDOSCOPY RN Not Available [facility] ([facility]) [address] [facility], [place], [address], 06/28/2023 08:27:50 06/27/20 23 06/28/2023 CBC WITH DIFFE RENTI AL/PL ATELE T hematology comments: ENDOSCOPY RN Not Available [facility] ([facility]) [address] [facility], [place], [address], 06/28/2023 08:27:50 06/27/20 23 06/28/2023 HEPAT IC FUNCT ION PANEL (7) protein, total 7.3 g/dL 6.0-8. 5 Not Available [facility] ([facility]) [address] [facility], [place], [address], 06/28/2023 08:27:51 06/27/20 23 06/28/2023 HEPAT IC FUNCT ION PANEL (7) albumin 4.2 g/dL 3.8-4. 8 Not Available [facility] ([facility]) [address] [facility], [place], [address], 06/28/2023 08:27:51 06/27/20 23 06/28/2023 HEPAT IC FUNCT ION PANEL (7) bilirubin, total 0.6 mg/dL 0.0-1. 2 Not Available [facility] ([facility]) [address] [facility], [place], [address], 06/28/2023 08:27:51 06/27/2006/28/2023 HEPAT IC FUNCT ION PANEL (7) bilirubin, direct 0.16 mg/dL 0.00-0 .40 Not Available [facility] ([facility]) [address] [facility] [place], [address], 06/28/2023 08:27:51 06/27/20 23 06/28/2023 HEPAT IC FUNCT ION PANEL (7) alkaline phosphatase 81 IU/L 44-121 Not Available [facility] ([facility]) [address] [facility] [place], [address], 06/28/2023 08:27:51 06/27/20 23 06/28/2023 HEPAT IC FUNCT ION PANEL (7) AST (SGOT) 43 IU/L 0-40 above high normal Not Available [facility] ([facility]) [address] [facility], [place], [address], 06/28/2023 08:27:51 06/27/2006/28/2023 [id number]||2024-12-05 13:09:00|MM_ITS|BURKT|Imaging|[id number]|"EXAMINATION: MM screening susan BI w bernard HISTORY: Screening TECHNIQUE: Craniocaudal and mediolateral oblique 3-D tomosynthesis images were obtained and synthetic 2-D images were generated. CAD analysis was submitted and interpreted. COMPARISON: No prior mammogram is available for comparison at this institution. BREAST PARENCHYMAL COMPOSITION: Not dense: There are scattered areas of fibroglandular density. FINDINGS: There is no evidence of suspicious mass, calcification, or architectural distortion to sugg est malignancy in either breast. There has been no suspicious interval change. IMPRESSION: 1. No mammographic evidence of malignancy. 2. Recommend routine screening mammography in one year. BI-RADS Category 1: Negative Reviewed, dictated and finalized at location A. IMPRESSION: 1. No mammographic evidence of malignancy. 2. Recommend routine screening mammography in one year. BI-RADS Category 1: Negative "
--- OUTSIDE RECORDS SUMMARY | 2024-12-05 11:54 | XMS_ITS | Referral Summary ---
Author Organization [facility] Address [address] [place] [id number] Care Team Providers Care Professor Of German Name Role Phone Ember Galvez MD Primary [...] on file Legal Sex Female 3:06 PM QUARRYMAN Gender Identity Not on file Sexual Orientation Not on file Last Filed Vital Signs Vital Sign Reading Time Taken Comments Blood Pressure 151/72 09/21/2023 11:12 AM QUARRYMAN Pulse 58 09/21/2023 11:12 AM QUARRYMAN Temperature 36.3 C (97.3 F) 09/21/2023 11:12 AM QUARRYMAN Respiratory Rate 18 09/21/2023 11:12 AM QUARRYMAN Oxygen Saturation 96% 09/21/2023 11:12 AM QUARRYMAN Inhaled Oxygen Concentration - - Weight 82.6 kg (182 lb) 09/21/2023 11:12 AM QUARRYMAN Height 160.5 cm (5' 3.19 ) 09/21/2023 11:12 AM C Body Mass Index 32.05 09/21/2023 11:12 AM QUARRYMAN Plan of Treatment Not on file Insurance [facility] [employer] [facility] [employer] Care Teams Professor Of German Relationship Specialty Start Date End Date Ember Galvez MD [address] [address] PCP - General Family Medicine 07/03/23
== END 2024-12-05 11:50 | disposition home or self-care (01) ==
PROVIDERS: PCP Nurse Practitioner Family; Visit Provider Nurse Practitioner Family
DX: Z12.31 Encounter for screening mammogram for malignant neoplasm of breast (principal)
CPT/HCPCS: 77063; 77067